=== PATIENT | female | born 1990 | race Caucasian/White ===

== ENCOUNTER 2020-06-09 19:30 | Emergency (ER) | payer OTHER ==
[2020-06-09 20:15] VITALS: BP 120/75; PULSE 87; RESP 16; TEMP 98.8
[2020-06-09] MEDS ORDERED: LIDOCAINE 1% INJ 10MG/ML (20 ML MDV) SQ ONE (20:25)
--- NOTE | 2020-06-09 20:29 | ED ---
Skin/Abscess/FB HPI - General Chief complaint: Skin/Abscess/Foreign Body Stated complaint: Piercing Issue Time Seen by Provider: 06/09/20 20:17 Source: patient Mode of arrival: ambulatory Limitations: no limitations - History of Present Illness Initial comments: 30-year-old female patient presents to the emergency department today for evaluation of her piercing site. Patient states that she had a dermal anchor piercing placed to the area near the right eye about 4 months ago. Patient states approximately 4 days ago she started having significant pain to the area and it appears as though her "body is rejecting" the piercing. She states it is starting to come out. She is quite concerned about scarring and would like the piercing removed here. She states that she was been told that if the piercing is allowed to come out on its own the scar is much bigger. She denies any drainage from the area. Denies fever or chills. Denies any pain or swelling around the eye. - Related Data Previous Rx's Medication Instructions Recorded Cephalexin [Keflex] 500 mg PO TID #9 cap 06/09/20 Allergies Allergy/AdvReac Type Severity Reaction Status Date / Time No Known Allergies Allergy Verified 06/09/20 20:15 Review of Systems ROS Statement: Those systems with pertinent positive or pertinent negative responses have been documented in the HPI. ROS Other: All systems not noted in ROS Statement are negative. Past Medical History Additional Past Medical History / Comment(s): hep C History of Any Multi-Drug Resistant Organisms: None Reported Past Surgical History: Section Additional Past Surgical History / Comment(s): abscess removal Past Psychological History: No Psychological Hx Reported Smoking Status: Never smoker Past Alcohol Use History: None Reported Past Drug Use History: None Reported General Exam Limitations: no limitations General appearance: alert, in no apparent distress, other (This is a well- developed, well-nourished adult female patient in no acute distress. Vital signs upon presentation are temperature 98.8F, pulse 87, respirations 16, blood pressure 120/75, pulse ox 98% on room air.) Eye exam: Present: PERRL, EOMI, other (There is a dermal anchor piercing located to the right lateral sub orbital region. There is very minimal surrounding erythema. The dermal anchor does appear to be partially expulsed from the skin. ). Absent: scleral icterus, conjunctival injection, periorbital swelling Respiratory exam: Present: normal lung sounds bilaterally. Absent: respiratory distress, wheezes, rales, rhonchi, stridor Cardiovascular Exam: Present: regular rate, normal rhythm, normal heart sounds. Absent: systolic murmur, diastolic murmur, rubs, gallop, clicks Neurological exam: Present: alert, oriented X3, CN II-XII intact Psychiatric exam: Present: normal affect, normal mood Skin exam: Present: warm, dry, intact, normal color. Absent: rash Course Vital Signs 06/09/20 20:12 Temperature 98.8 F Pulse Rate 87 Respiratory 16 Rate Blood Pressure 120/75 O2 Sat by Pulse 98 Oximetry Procedures - Forgein Body Removal Soft Tissue Consent Obtained: written consent Site: face Anesthetic Used: lidocaine 1% Amount (mLs): 1 Foreign Body Suspected: Other (Piercing/metal) Foreign Body Removed: yes Foreign Body Removal Technique: Other (dissected with 18g needle) Patient Tolerated Procedure: well, no complications Additional Comments: Dermal anchor piercing protruding from the skin, there was a thin layer of skin tissue overlying the anchor portion of the jewelry. This was scraped away using an 18g needle. The jewelry was removed very easily after this. No incision or widening of the opening was necessary. Patient tolerated well. Medical Decision Making - Medical Decision Making 30-year-old female patient presented to the emergency department today for evaluation of her piercing site. She's been having pain for the last 4 days. Physical examination did reveal a dermal anchor piercing to the right lateral suborbital region, this did appear to be protruding from the skin. The patient requested to have the piercing removed as she has heard that if it is expelled without assistance there is more scarring. I did inform the patient that there may still be scarring even if I did remove her. She agreed and signed consent. I did remove the piercing as documented. Patient tolerated this well. We did discuss keep area clean and dry. Avoid exposure to sun. She is instructed not to primary care physician for reevaluation of the area in 1-2 days. Additional course of antibiotics for prophylaxis. Return parameters were discussed in detail. She verbalizes understanding and agrees with this plan. Disposition Clinical Impression: Foreign body in soft tissue Disposition: HOME SELF-CARE Condition: Good Instructions (If sedation given, give patient instructions): Soft Tissue Foreign Body (ED) Additional Instructions: Keep area clean and dry. Avoid exposure to sun. Consider using an antibiotic ointment that is just for scars like mederma. Follow-up with your primary care physician for recheck in 1-2 days. Complete the antibiotic and full to prevent infection. Return for any other new, worsening, or concerning symptoms. Prescriptions: Cephalexin [Keflex] 500 mg PO TID #9 cap Is patient prescribed a controlled substance at d/c from ED?: No Referrals: Sydni Godoy MD [Primary Care Provider] - 1-2 days Time of Disposition: 20:50
[2020-06-09] MEDS ORDERED: BACITRACIN OINT 1 EACH PACKET TOPICAL ONE (20:34)
== END 2020-06-09 21:03 | disposition home or self-care (01) ==
LOC: EC 19:30
DX: M79.5 Residual foreign body in soft tissue (principal)
CPT/HCPCS: 99282; 10120; J2001